=== PATIENT | male | born 1960 | race Caucasian/White ===

== ENCOUNTER → 2019-04-08 | Outpatient (CLI) | payer OTHER ==
[~2019-04-08] MED LIST: IBUPROFEN 200200 M1 PO; NAPROSYN500 MG PO; NORFLEX100 MG PO
== END ==
LOC: M.RAD 11:10
DX: N64.4 Mastodynia (principal); N63.10 Unspecified lump in the right breast, unspecified quadrant

== ENCOUNTER → 2019-09-23 | Outpatient (CLI) | payer OTHER | LOC: M.CT 10:22 | DX: Z13.6 Encounter for screening for cardiovascular disorders (principal) ==